=== PATIENT | male | born 1980 | race Caucasian/White ===

== ENCOUNTER 2025-01-19 07:25 | Outpatient (CLI) | payer OTHER, SELFPAY | END 2025-01-19 07:26 | disposition home or self-care (01) | LOC: NFLDREF 01-21 05:29 | PROVIDERS: PCP Family Medicine; Referring Provider Family Medicine; Visit Provider Family Medicine | DX: E78.5 Hyperlipidemia, unspecified (principal) | CPT/HCPCS: 80053; 80061 ==

== ENCOUNTER 2025-05-20 07:37 | Outpatient (CLI) | payer OTHER, SELFPAY | END 2025-05-20 07:38 | disposition home or self-care (01) | LOC: NFLDREF 05-24 14:26 | PROVIDERS: PCP Family Medicine; Referring Provider Family Medicine; Visit Provider Family Medicine | DX: I10 Essential (primary) hypertension (principal) | CPT/HCPCS: 80048 ==

== ENCOUNTER 2025-08-18 07:35 | Outpatient (CLI) | payer OTHER, SELFPAY | END 2025-08-18 07:36 | disposition home or self-care (01) | LOC: NFLDREF 08-21 04:20 | PROVIDERS: PCP Family Medicine; Referring Provider Family Medicine; Visit Provider Family Medicine | DX: I10 Essential (primary) hypertension (principal) | CPT/HCPCS: 80048 ==